=== PATIENT | male | born 1990 | race African-American/Black ===

== ENCOUNTER 2024-05-27 08:21 | Emergency (ER) | payer OTHER, SELFPAY ==
--- NOTE | ~2024-05-27 | US_ITS ---
EXAMINATION: US scrotum doppler DATE: 05/27/2024 09:52 INDICATION: Right testicular pain and swelling TECHNIQUE: Testicular sonogram utilizing grayscale and Doppler COMPARISON: None. FINDINGS: The right testis measures 3.3 x 2.8 x 3.3 cm. The left testis measures 3.3 x 2.5 x 2.9 cm. Normal gra yscale appearance to the left testis. There is heterogeneous decreased echogenicity in the right test is. The left epididymis is normal with normal vascular flow. There is some relative swelling of the h ead of the right epididymis. The remainder of the right epididymis appears normal on grayscale imagin g. There is however asymmetric diffuse increased vascular flow at the right testis, epididymis and sp ermatic cord relative to the left testis and epididymis consistent with right epididymoorchitis. Ther e is no varicocele. There is a small right hydrocele. IMPRESSION: 1. Heterogeneous decreased echogenicity in the right testis with asymmetric increased vascular flow to both the right testis and epididymis and small right hydrocele. Constellation of findings would be most consistent with right-sided epididymoorchitis. Reviewed, dictated and finalized at location B. RIAL FLOW ENGINEER IMPRESSION: 1. Heterogeneous decreased echogenicity in the right testis with asymmetric in creased vascular flow to both the right testis and epididymis and small right h ydrocele. Constellation of findings would be most consistent with right-sided e pididymoorchitis.
[2024-05-27 08:27] VITALS: BP 158/80; PULSE 63; RESP 18; TEMP 36.9; O2SAT 100
--- NOTE | 2024-05-27 08:39 | PC.NURSE ---
Patient unable to urinate at this time
--- NOTE | 2024-05-27 09:12 | ED_ITS ---
HPI - General Adult General Chief complaint: Urogenital-Male Stated complaint: testicular pain Time Seen by Provider: 05/27/24 08:56 History of Present Illness HPI narrative: 34-year-old male present to the emergency department for evaluation for persistent right testicular pain. Patient states he was evaluated at [facility] [place] on Monday and had an ultrasound at [facility]. Patient states he was started on antibiotics and diagnosed with inflammation. Patient states he has not been taking anything for pain control. Patient states he has been taking the antibiotic. Patient presents emergency department complaining of persistent right testicular pain. Related Data Allergies Allergy/AdvReac Type Severity Reaction Status Date / Time ibuprofen (From Motrin) AdvReac Mild Hives Verified 05/27/24 08:34 Review of Systems Review of Systems: All systems reviewed & are unremarkable except as noted in HPI and below Exam Narrative: APPEARANCE: Well appearing, no pain, no distress, well-nourished. HEAD: normocephalic, atraumatic. EYES: PERRLA/EOMI, conjunctivae clear. NOSE: Normal no drainage EARS:TMS clear with good light reflex. THROAT: Pharynx clear, no exudate. NECK: Supple. No adenopathy, no masses. RESPIRATORY: Airway patent, respirations nonlabored. Clear to auscultation bilaterally, no rales, rhonchi, wheezing. CARDIOVASCULAR: Regular rate and rhythm without murmurs rubs or gallops. ABDOMINAL: Soft, nontender, nondistended, normal bowel sounds MUSCULOSKELETAL: Moves all extremities. Strength/ROM intact, No edema, No calf tenderness. NEURO: Alert. Cranial nerves II through XII intact. Good gait. Good coordination SKIN: Warm, dry. Normal Color Genital exam: Right testicular swelling with tenderness Course Vital Signs Vital signs: Vital Signs Temperature 98.4 F 05/27/24 08:27 Pulse Rate 63 05/27/24 08:27 Respiratory Rate 18 05/27/24 08:27 Blood Pressure 158/80 H 05/27/24 08:27 Pulse Oximetry 100 05/27/24 08:27 Oxygen Delivery Room Air 05/27/24 08:27 Temperature 98.8 F 05/27/24 13:34 Pulse Rate 62 05/27/24 13:34 Respiratory Rate 16 05/27/24 13:34 Blood Pressure 122/64 05/27/24 13:34 Pulse Oximetry 99 05/27/24 13:34 Oxygen Delivery Room Air 05/27/24 08:27 Medical Decision Making MDM Narrative Medical decision making narrative: 34-year-old male presents to the emergency department for evaluation for right- sided testicular pain. Patient had been seen at an outside hospital and had been started on Keflex at that time. UA was negative for infection, ultrasound showed no evidence of torsion but was positive for epididymo-orchitis. Patient was negative for trich and gonorrhea. Patient was treated with 500 mg of IM Rocephin the emergency department and patient be discharged home on Levaquin. Patient was updated the results of his workup. Patient was encouraged of close follow-up with primary care physician. All questions concerns were addressed. Differential Diagnosis Differential Diagnosis: Chlamydia, gonorrhea, UTI, torsion, hydrocele, varicocele, epididymitis Vital Signs Vital Signs: Vital Signs Temperature 98.4 F 05/27/24 08:27 Pulse Rate 63 05/27/24 08:27 Respiratory Rate 18 05/27/24 08:27 Blood Pressure 158/80 H 05/27/24 08:27 Pulse Oximetry 100 05/27/24 08:27 Oxygen Delivery Room Air 05/27/24 08:27 Temperature 98.8 F 05/27/24 13:34 Pulse Rate 62 05/27/24 13:34 Respiratory Rate 16 05/27/24 13:34 Blood Pressure 122/64 05/27/24 13:34 Pulse Oximetry 99 05/27/24 13:34 Oxygen Delivery Room Air 05/27/24 08:27 Lab Data Lab results reviewed: Yes I reviewed the patient's lab results. Labs: Lab Results 05/27/24 Range/Units 10:18 Urine Color Yellow (Yellow) Urine Appearance Clear (Clear) Urine pH 7.0 (5.0-9.0) Ur Specific [place] 1.026 (1.001-1.035) Urine Protein 1+ H (Negative) mg/dL Urine Glucose (UA) Negative (Negative) mg/dL Urine Ketones 1+ H (Negative) mg/dL Ur Blood (Man) Negative (Negative) Urine Nitrate Negative (Negative) Urine Bilirubin Negative (Negative) Urine Urobilinogen 1.0 (<2.0) mg/dL Leukocyte Esterase Rfl Negative (Negative) PRIYANK/UL Urine RBC 0-2 (0-2) /hpf Urine WBC 0-5 (0-3) /hpf Ur Squamous Epith Cells None seen (Few) /hpf Urine Bacteria None seen /hpf Urine Casts 0-2 C. trachomatis (PCR) Not detected (NOT DETECTE) N. gonorrhoeae (PCR) Not detected (NOT DETECTE) Imaging Data Radiologist's impression: Impressions Scrotum Ultrasound 05/27/24 09:57 IMPRESSION: 1. Heterogeneous decreased echogenicity in the right testis with asymmetric increased vascular flow to both the right testis and epididymis and small right hydrocele. Constellation of findings would be most consistent with right-sided epididymoorchitis. Discharge Plan Discharge Clinical Impression: Epididymo-orchitis Patient Disposition: Home, Self-Care Condition: Stable Instructions: Antibiotic Form, Epididymo-Orchitis (ED) Additional Instructions: Your diagnosis was epididymoorchitis. Tylenol for pain control. Stop taking the cephalexin you are prescribed from [place] and start taking the Levaquin that we prescribed to today. Have close follow-up with Urology and with your primary care physician Patient Language: Liberian Prescriptions: New levofloxacin 500 mg tablet 500 mg PO DAILY 10 Days Qty: 10 0RF Follow-up/Referrals: Jose Flores MD [Physician] - UNKNOWN,DOCTOR [Primary Care Provider] -
--- OUTSIDE RECORDS SUMMARY | 2024-05-27 09:36 | XMS_ITS | CONTINUITY OF CARE DOCUMENT ---
Author Name elizabeth johnson Address Unknown Organization [facility] Address [address] [place] [address] Phone [phone] Care Team Providers Care Automobile Mechanic Supervisor Name Role Phone Don LANGSTON, Salomón Unavailable EDIL ANDREWS MD Unavailable WALTER LANGSTON, PRATIK Unavailable [phone] INSURANCE PROVIDERS Payer name Policy type / Coverage type [place] [employer] republic[employer] Medicaid 0 [id number]
[2024-05-27] MEDS: HYDROcodone/acetaminophen (*CRX) 7.5-325 MG TABLET 1 TAB PO (10:01)
[2024-05-27 11:14] VITALS: BP 130/78; PULSE 59; RESP 16; O2SAT 99
[2024-05-27 11:25] LABS: Add Urine Microscopic? YES; Appearance Urine Clear (Clear); Bacteria Urine None Seen /hpf; Bilirubin Urine Negative (Negative); Blood Urine Negative (Negative); Color Urine Yellow (Yellow); Glucose Urine UA Negative (Negative); Ketones Urine 1+ mg/dL (Negative); Leukocyte Esterase Ur Negative LEU/UL (Negative); Nitrate Urine Negative (Negative); Non Pathogenic Casts 0-2; Protein Urine 1+ mg/dL (Negative); RBC Urine 0-2 /hpf (0-2); Specific Grav Ur 1.026 (1.001-1.035); Squamous Epithelial Cell Urine None Seen /hpf (Few); WBC Urine 0-5 /hpf (0-3)
[2024-05-27 12:07] LABS: Chlamydia trachomatis NOT DETECTED (NOT DETECTE); Neisseria gonorrhoeae PCR NOT DETECTED (NOT DETECTE)
[2024-05-27 12:45] VITALS: BP 122/64; PULSE 61; RESP 18; TEMP 37.1; O2SAT 99
[2024-05-27] MEDS: levoFLOXacin 500 MG TABLET PO (12:58)
[2024-05-27] MEDS: cefTRIAXone 1 GM VIAL 0.5 GM IM (12:58)
[2024-05-27] MEDS: LIDOCAINE 1% LOCAL INJ 10 ML VIAL (13:07)
[2024-05-27 13:34] VITALS: BP 122/64; PULSE 62; RESP 16; TEMP 37.1; O2SAT 99
== END 2024-05-27 13:35 | disposition home or self-care (01) ==
PROVIDERS: Emergency Provider Emergency Medicine
DX: N45.3 Epididymo-orchitis (principal)
CPT/HCPCS: 76870; 81001; 87491; 87591; 93976; 96372; 99284; A9270; J0696; J2003